=== PATIENT | female | born 1960 | race Caucasian/White ===

== ENCOUNTER 2024-12-28 08:40 | Outpatient (REF) | payer BC, SELFPAY ==
[2024-12-28 14:44] LABS: HCT 41.2 % (36.0-46.0); HGB 13.5 g/dL (11.2-15.7); MCH 31.1 pg (27.0-33.0); MCHC 32.8 % (32.0-36.0); MCV 95 fL (80-95); MPV 9.6 fL (8.0-11.0); Platelet Count 300 10^3/uL (130-400); RBC 4.34 10^6/uL (3.93-5.22); RDW 12.7 % (11.7-14.6); RDW-SD 44.1 fL; WBC 8.26 10^3/uL (4.4-10.8)
[2024-12-28 15:40] LABS: Iron 116 ug/dL (50-170)
[2024-12-28 16:08] LABS: ALT 31 U/L (14-59); AST 21 U/L (15-37); Albumin 4.1 g/dL (3.4-5.0); Alkaline Phosphatase 80 U/L (46-116); BUN 23 mg/dL (7-18); Bilirubin, Total 1.4 mg/dL (0.2-1.0); Calcium 9.2 mg/dL (8.5-10.1); Calculated LDL 74 mg/dL (<100); Chloride 105 mmol/L (98-107); Cholesterol 156 mg/dL (<200); Estimated GFR 62.91 (mL/min/1.73m2); Ferritin 84 ng/mL (8-252); Glucose 110 mg/dL (74-106); HDL Cholesterol 69 mg/dL (>or=50); Potassium 3.3 mmol/L (3.5-5.1); Sodium 143 mmol/L (136-145); TSH 1.61 uIU/mL (0.36-3.74); Triglyceride 68 mg/dL (<150); Vitamin D 25 Total 59 ng/mL (30-100)
[2024-12-28 16:40] LABS: FREE T4 1.25 ng/dL (0.76-1.46)
[2024-12-28 16:52] LABS: Hemoglobin A1C 5.7 % (<5.7)
[2024-12-28 22:57] LABS: T3,Free 4.6 pg/mL (2.8-5.3)
== END 2024-12-28 08:41 | disposition home or self-care (01) ==
LOC: NCHCN 08:40
PROVIDERS: Visit Provider Physician Assistant
DX: R53.83 Other fatigue (principal); R73.03 Prediabetes; E03.9 Hypothyroidism, unspecified; E55.9 Vitamin D deficiency, unspecified; Z13.220 Encounter for screening for lipoid disorders
CPT/HCPCS: 80053; 80061; 82306; 85027; 82728; 83036; 83540; 84439; 84443; 84481

== ENCOUNTER 2025-05-24 18:27 | Outpatient (REF) | payer BC, SELFPAY ==
--- NOTE | 2025-05-24 15:00 | PAPFT_PTH ---
PATIENT: Jacky Ward LOC: [facility]#:[id number] AGE/SX: 64/F ROOM: RE05/24/[address]: MELI: 1960 BED: DIS: 05/24/2025 SPEC #: [id number] RECD: 05/28/25 12:29 STATUS: KAILA SHAW #: [id number] KINGS: 05/24/25 15:[address]: Hina Ventura DEPT: [facility] Cytology RECD BY: Triny Rivas Tissues: 1 - CX/ENDOCX FOR PAP SMEARS Procedures: PAP THIN PREP/[facility] Screening Comments: [id number]
[2025-05-24 21:45] LABS: Vitamin D 25 Total 47 ng/mL (30-100)
== END 2025-05-24 18:28 | disposition home or self-care (01) ==
LOC: NCHCN 18:27
PROVIDERS: PCP Family Medicine; Visit Provider Family Medicine
DX: Z12.4 Encounter for screening for malignant neoplasm of cervix (principal)
CPT/HCPCS: 82306; 88142